=== PATIENT | female | born 1970 | race Caucasian/White ===

== ENCOUNTER 2020-01-11 23:28 | Emergency (ER) | payer BC ==
[2020-01-11] MEDS ORDERED: COZAAR25 M1 PO (23:42)
[2020-01-12 00:01] LABS: EOS # 0.2 (0.04-0.40); EOS % 2.8 % (1.0-5.0); HEMATOCRIT 39.5 % (37.0-47.0); HEMOGLOBIN 12.9 g/dL (12.5-16.0); MEAN CELL VOLUME 91 fl (78-100); MEAN CORPUSCULAR HEMOGLOBIN 30 pg (27-31); MEAN CORPUSCULAR HGB CONC 33 g/dL (33-37); MEAN PLATELET VOLUME 10.2 fl (7.4-10.4); MONO # 0.6 (0.20-0.80); NEU # 2.5 (1.40-6.50); PLATELET COUNT 308 K/mm3 (130-400); RED BLOOD COUNT 4.36 M/mm3 (4.10-5.30); RED CELL DISTRIBUTION WIDTH 13.5 % (11.5-14.5); WHITE BLOOD COUNT 5.4 K/mm3 (4.8-10.8)
[2020-01-12 00:09] LABS: ALBUMIN 4.1 g/dL (3.5-5.0); POTASSIUM 3.6 mmol/L (3.5-5.1); SODIUM 141 mmol/L (136-145)
[2020-01-12 00:11] LABS: CALCIUM 8.9 mg/dL (8.3-10.5)
[2020-01-12 00:12] LABS: GLUCOSE 105 mg/dL (65-105); TOTAL PROTEIN 7.1 g/dL (6.4-8.3)
[2020-01-12 00:13] LABS: CARBON DIOXIDE 25 mmol/L (22-29)
[2020-01-12 00:14] LABS: TOTAL BILIRUBIN 0.3 mg/dL (0.2-1.2)
[2020-01-12 00:17] LABS: AST-SGOT 15 U/L (5-34)
[2020-01-12 00:18] LABS: ALT/SGPT 15 U/L (0-55)
[2020-01-12 00:22] LABS: PROTHROMBIN TIME 9.5 SECONDS (9.0-12.0)
[2020-01-12 00:28] LABS: TROPONIN-I < 0.03 ng/mL (<0.030)
[2020-01-12 00:58] LABS: PARTIAL THROMBOPLASTIN TIME 26.5 SECONDS (21.0-32.0)
[2020-01-12 01:54] LABS: URINE WBC 0 /hpf (0-3)
[2020-01-12 02:28] LABS: PH-URINE 6.5 (5.0 - 8.0); URINE APPEARANCE CLEAR; URINE BILIRUBIN NEGATIVE (NEGATIVE); URINE BLOOD NEGATIVE (NEGATIVE); URINE COLOR YELLOW; URINE GLUCOSE NEGATIVE (NEGATIVE); URINE KETONE NEGATIVE (NEGATIVE); URINE LEUKOCYTE ESTERASE NEGATIVE (NEGATIVE); URINE NITRATE NEGATIVE (NEGATIVE); URINE PROTEIN(semi-quant) NEGATIVE (NEGATIVE); URINE UROBILINOGEN NORMAL (NORMAL)
[2020-01-12] MEDS ORDERED: CYCLOBENZAPRINE10 M1 PO (02:46)
[2020-01-12 02:54] VITALS: BP 128/88
== END 2020-01-12 02:54 | disposition home or self-care (01) ==
LOC: ED 23:28
PROVIDERS: Nurse Practitioner
DX: M54.6 Pain in thoracic spine (principal); I10 Essential (primary) hypertension; Z90.710 Acquired absence of both cervix and uterus
CPT/HCPCS: J1885; J2405; J7030